=== PATIENT | female | born 1965 | race Caucasian/White ===

== ENCOUNTER 2016-03-27 13:10 | Emergency (ER) | payer OTHER ==
[2016-03-27] MEDS ORDERED: DEXAMETHASONE SOD PHOS 10 MG/1 ML VIAL ONE (13:56)
[2016-03-27] MEDS ORDERED: IBUPROFEN 800 MG TABLET ONE (13:56)
[2016-03-27] MEDS ORDERED: AMOXICILLIN TRIHYDRATE 250 MG CAPSULE ONE (13:56)
== END 2016-03-27 14:06 | disposition home or self-care (01) ==
LOC: ED 13:10
DX: J02.0 Streptococcal pharyngitis (principal); F17.200 Nicotine dependence, unspecified, uncomplicated; Z87.442 Personal history of urinary calculi; Z88.6 Allergy status to analgesic agent
CPT/HCPCS: 87880; 99283 ×2; A9270 ×2; J1100